=== PATIENT | male | born 1985 | race Native Hawaiian/Other Pacific Islander ===

== ENCOUNTER 2017-04-03 00:01 | Emergency (ER) | payer OTHER ==
[2017-04-03 00:01] VITALS: BMI 22.2
[2017-04-03 00:10] VITALS: BP 147/92; PULSE 85; RESP 16; TEMP 98; O2SAT 97
[2017-04-03] MEDS ORDERED: BENZOCAINE SPR MM STA (00:23)
[2017-04-03] MEDS ORDERED: Silver Nitrate Topical - Stick TOP ONE (00:27)
[2017-04-03] MEDS ORDERED: Benzocaine/Butamben/Tetracai 14-2-2% TOP Spray TOP ONE (00:28)
--- NOTE | 2017-04-03 00:46 | ED PDOC ---
HPI: General Adult Time Seen by Provider: 04/03/17 00:13 Chief Complaint (Nursing): ENT Problem Chief Complaint (Provider): Bleeding from mouth History Per: Patient History/Exam Limitations: no limitations Onset/Duration Of Symptoms: Hrs Have you had recent travel within the past 21 days to any of the following countries: [place], [place], [place] or [place]?: No Current Symptoms Are (Timing): Still Present Additional History Per: Patient Additional Complaint(s): 32yo male, no past medical history presents to ed with complaints of blood dripping in the back of his throat since earlier today. Patient states this afternoon he was walking by a bus with significant fumes and dust and he took a deep breath after which he felt throat irritation and uncontrollable cough for a few minutes. Patient states 30 minutes after that, he felt blood dripping in the back of his throat and states he coughed up the blood. He also states he ate hard pieces of bread and duck with hard skin and felt the blood dripping sensations persist. He denies any light headedness, dizziness, chest pain or shortness of breath. He has no other complaints. Past Medical History Reviewed: Historical Data, Nursing Documentation, Vital Signs Vital Signs: Last Vital Signs Temp 98.0 F 04/03/17 00:08 Pulse 85 04/03/17 00:08 Resp 16 04/03/17 00:08 BP 147/92 H 04/03/17 00:08 Pulse Ox 97 04/03/17 00:08 - Medical History PMH: No Chronic Diseases - Surgical History Surgical History: No Surg Hx - Family History Family History: States: Unknown Family Hx - Home Medications Home Medications: Ambulatory Orders Medication Instructions Recorded No Known Home Med 02/12/15 - Allergies Allergies/Adverse Reactions: Allergies Allergy/AdvReac Type Severity Reaction Status Date / Time No Known Allergies Allergy Verified 04/03/17 00:08 Review of Systems ROS Statement: Except As Marked, All Systems Reviewed And Found Negative ENT: Positive for: Other ("dripping blood in back of throat") Cardiovascular: Negative for: Chest Pain, Light Headedness Respiratory: Negative for: Shortness of Breath Neurological: Negative for: Dizziness Physical Exam - Reviewed Nursing Documentation Reviewed: Yes Vital Signs Reviewed: Yes - Physical Exam Appears: Positive for: Non-toxic, No Acute Distress Skin: Positive for: Normal Color, Warm Eye Exam: Positive for: Normal appearance ENT: Positive for: Other (right sided tonsil with slow venous bleed). Negative for: Pharyngeal Erythema, Tonsillar Swelling Neck: Positive for: Supple Cardiovascular/Chest: Positive for: Regular Rate, Rhythm Respiratory: Positive for: Normal Breath Sounds. Negative for: Respiratory Distress Neurologic/Psych: Positive for: Alert, Oriented. Negative for: Motor/Sensory Deficits - ECG O2 Sat by Pulse Oximetry: 97 (RA) Pulse Ox Interpretation: Normal Medical Decision Making Medical Decision Making: Impression: Soft tissue bleed in ooropharynx Plan: -- Benzocaine spray and sliver nitrate used with cessation of bleeding. Patient informed to follow up with PCP and to return to ED immediately if symptoms persist or worsen. Patient stable for discharge home. Scribe Attestation: Documented by Maria Teresa Rojas acting as a scribe for Marcus Guzman MD. Provider Attestation: All medical record entries made by the Scribe were at my direction and personally dictated by me. I have reviewed the chart and agree that the record accurately reflects my personal performance of the history, physical exam, medical decision making, and the department course for this patient. I have also personally directed, reviewed, and agree with the discharge instructions and disposition. Disposition - Clinical Impression Clinical Impression: Bleeding from throat - Disposition Referrals: Garfield Ritchie MD [Staff Provider] - Disposition: Routine/Home Disposition Time: 00:42 Condition: IMPROVED Instructions: Hemoptysis (ED) Forms: [employer] (Czech)
== END 2017-04-03 01:16 | disposition home or self-care (01) ==
LOC: H.ER 00:01
DX: R04.2 Hemoptysis (principal)